=== PATIENT | male | born 1970 | race Caucasian/White ===

== ENCOUNTER 2022-09-16 11:57 | Emergency (ER) | payer OTHER ==
[~2022-09-16] VITALS: Ht 185.4 cm; Wt 113.6 kg
[2022-09-16 12:03] VITALS: TEMP 99.9
[2022-09-16] MEDS ORDERED: IBUP-1492 PO (13:10)
[2022-09-16 13:56] VITALS: BP 114/71; PULSE 88; RESP 16
== END 2022-09-16 14:08 | disposition home or self-care (01) ==
LOC: EMS 12:01
DX: B01.9 Varicella without complication (principal); F31.9 Bipolar disorder, unspecified; F25.9 Schizoaffective disorder, unspecified
CPT/HCPCS: 99282; Z7502

== ENCOUNTER 2022-09-29 11:56 | Emergency (ER) | payer OTHER ==
[~2022-09-29] VITALS: Ht 185.4 cm; Wt 93.2 kg
[~2022-09-29 11:56] MED LIST: IBUP-1492 PO
[2022-09-29 11:57] VITALS: TEMP 98.3
[2022-09-29] MEDS ORDERED: DIVA-112 PO (12:02)
[2022-09-29] MEDS ORDERED: RISP2TAB45 PO (12:02)
[2022-09-29] MEDS ORDERED: SERT-439 PO (12:02)
[2022-09-29] MEDS ORDERED: BENZ2TAB71 PO (12:02)
[2022-09-29] MEDS ORDERED: DIVA-111 PO (12:02)
[2022-09-29 12:45] VITALS: BP 102/80; PULSE 77; RESP 16
== END 2022-09-29 12:52 | disposition home or self-care (01) ==
LOC: EMS 11:57
DX: B01.9 Varicella without complication (principal); F31.9 Bipolar disorder, unspecified; F25.9 Schizoaffective disorder, unspecified
CPT/HCPCS: 99281; Z7502